=== PATIENT | female | born 1975 | race Caucasian/White ===

== ENCOUNTER → 2016-04-14 | Outpatient (CLI) | payer BC ==
[~2016-04-14] MED LIST: IBUP600T44 PO; OXYC-57 PO
== END | disposition home or self-care (01) ==
LOC: C.PAPS 13:41
PROVIDERS: ATTEND Obstetrics & Gynecology
DX: Z01.419 Encounter for gynecological examination (general) (routine) without abnormal findings (principal)

== ENCOUNTER → 2017-04-18 | Outpatient (CLI) | payer OTHER | END | disposition home or self-care (01) | LOC: C.PAPS 13:28 | PROVIDERS: ATTEND Obstetrics & Gynecology | DX: Z12.4 Encounter for screening for malignant neoplasm of cervix (principal) ==

== ENCOUNTER 2023-06-17 19:29 | Observation (INO) ==
--- OUTSIDE RECORDS SUMMARY | 2023-06-17 19:32 | External Medical Summary | Continuity of Care Document ---
Author Name Unknown Organization [facility] [address] [id number] Care Team Providers Care Cut Press Operator Name Role Phone Mehul Monroy Primary Care Physician [phone] [id number] Date(s): 06/14/23 - 06/14/23 [facility] [address], [place] [id number] Encounter Diagnosis Notalgia paresthetica(Discharge Diagnosis) - 06/14/23 Discharge Disposition: Home or Self Care Attending Physician: BERNADETTE Coburn Holly C Allergies, Adverse Reactions, Alerts No Known Allergies Assessment and Plan Extracted from: Title:Dermatology Office Visit Note Author:BERNADETTE Coburn Holly C Date:06/14/23 1.Notalgia paresthetica Discussed in full the diagnosis, She is going to try primary care provider, her parents went to [facility] and had good treatment. Advised stretching and to pay attention to the position she is in when it itches the most. She has gained weight and not been exercising so she is going to start to get healthy again. she may consider physical therapy,she may consider getting an x-ray to see if there is any arthritis. Advised cool compresses orice packs,discussedthat some skin becomes hypersensitive and that might be why the bra, shirt orsheetmake it itch worse, discussed whenshe is not busy doing anything else that can itch worse. May tryTylenol,she may try ibuprofen 3 pills 3 times a day for 1 week to help with the inflammation in that area,she may try capsaicin cream, explained this will burnthe first time she puts it onand to follow the instructions. Advised not to let thehot shower water hit that area. May consider gabapentin or TENS unitin the future if we cannot get relief. Total time spent includes, [id number] time and charting time, discussing diagnosis, treatment plan and possibilities and prognosis with patient.Total number of minutes for this [id number]. Follow up prn. Advised patient to call with any problems, questions, or concerns. States understanding. Patient was seen independently,Dr Reese for immediate collaboration as needed during this visit.Will follow up as scheduled with Dr Aguilar. Medications No Known Medications Mental Status 06/14/23 Barriers to Learning one year None evide nt Mandatory Health Literacy Documentation Yes Health Literacy Communication Barriers N ever Primary Language Russian Problem List Condition Confirmation Course Effective Dates Status Health St atus Informant Alopecia Confirmed Active Multiple nevi Confirmed Active Milbridge spots Confirmed Active Blue nevus Confirmed Active Milia Confirmed Active Kennedy angioma Confirmed Active Seborrheic keratoses Confirmed Active Diagnosis Diagnosis Type Effective Dates Health Status Clinical Service Informant Notalgia paresthetica Discharge Diagnosis 06/14/23 Procedures Procedure Date Related Diagnosis Body Site Status Procedure 1 05/2012 Completed section 2010 Complete d 1mole removal on back by Dr. Jazmyne Huddleston Social History Social History Type Response Smoking Status Never smoked cigaret daphne Sex Female Dermatology Outpatient Note * BERNADETTE Coburn, Ashlee C: PERFORM, MODIFY Event Display: Dermatology Outpt Note Authored Date: Chief Complaint itching around bra line on back x 5 months. Schmidt in color. History of Present Illness 47 YearsoldFemalepatient here for skin check. Patient reports area of concern today:Spot on leftspinefor 4 to 5 months. [facility] [employer] She knows it was not there the last time she was here to see Dr. Aguilar. There is no rash, but now is turninggray, she believes that is due from the scratching. She has not found anything to relieve the itch, she tried cortisone creamthatis made for bug bites that does not seemto help,CeraVe moisturizer might helpfor 5 minutes or so,it is worse when the clothinghits it and when she has a brawl on. She has had a history of back and neck pain and seen physical therapy in the pastbut does not remem lindsey havinga history of arthritis. No other skin areas of concern. Otherwise healthy. Physical Exam General: Well developed, well nourished, in no acute distress. Oriented x3 with appropriate mood and affect. Skin: skin exam performed of hair, scalp, ears, face, nose, lips, neck, chest, abdomen, back, axilla, upper extremities, hands. The exam normal except for the following findings: left mid back with blotchy oneill area. Nolesions suspicious for skin cancer. No unusual features under dermoscopy. Patient declined further exam. Denied any other areas of concerns. Assessment/Plan 1.Notalgia paresthetica Discussed in full the diagnosis, She is going to try primary care provider, her [facility] went to [facility] and had good treatment. Advised stretching and to pay attention to the position she is in when it itches the most. She has gained weight and not been exercising so she is going to start to get healthy again. she may consider physical therapy,she may consider getting an x-ray to see if there is any arthritis. Advised cool compresses orice packs,discussedthat some skin becomes hypersensitive and that might be why the bra, shirt orsheetmake it itch worse, discussed whenshe is not busy doing anything else that can itch worse. May tryTylenol,she may try ibuprofen 3 pills 3 times a day for 1 week to help with the inflammation in that area,she may try capsaicin cream, explained this will burnthe first time she puts it onand to follow the instructions. Advised not to let thehot shower water hit that area. May consider gabapentin or TENS unitin the future if we cannotget relief. Total time spent includes, [id number] time and charting time, discussing diagnosis, treatment plan and possibilities and prognosis with patient.Total number of minutes for this [id number]. Follow up prn. Advised patient to call with any problems, questions, or concerns. States understanding. Patient was seenindependently,Dr Reese for immediate collaboration as needed during this visit.Will follow up as scheduled with Dr Aguilar. Problem List/Past Medical History Ongoing Alopecia Blue nevus Kennedy angioma Milbridge spots Milia Multiple nevi Seborrheic keratoses Historical Skin tag Procedure/Surgical History Procedure| Service Date: 05/2012Cesarean section| Service Date: 2010 Allergies NKA Social History Smoking Status Never smoked cigarettes Electronic Signature on File Electronically Reviewed/Signed by: Ashlee Coburn PA-C Author Signature Dt/Tm:06/14/2023 04:12 PM Department of Dermatology Electronically Reviewed/Signed by: Delia Aguilar MD Cosigner Signature Dt/Tm: 06/14/2023 04:21 PM Department of Dermatology [facility] Patient Care team information Care Team Personnel Name: DO Monroy Dominic Position: Referring DIRECT Member Role: Primary Care Provider Address: Address: [address] [place] [address] Care Team Related Persons Name: TOMASZ MORRIS Address: home [address] [place], [place] [id number] Name: TOMASZ MORRIS Address: [facility] Address: home [address] [place], [place] [id number]"
--- NOTE | 2023-06-17 19:43 | Emergency Department Note ---
Impression & Plan Chest pain, Paresthesia of left arm, Hypertensive urgency, Elevated troponin ED Provider Note NAME: JONNIE MORRIS AGE: 47 SEX: F : 1975 ARRIVES VIA: Walk-In INFORMANT: Patient ED PROVIDER(S): Michael Nicole MD CHIEF COMPLAINT: Chest pain, Left arm numbness PLAN: Disposition: Admit MEDICAL DECISION MAKING: The patient is a pleasant 47-year-old woman with a past medical history of migraines who presents emergency department via walk-in accompanied by her son for evaluation of acute onset anterior chest pain/burning with development of left arm numbness which occurred several hours ago prior to arrival when the patient reports she was driving her car after stopping to get Cold [place] ice cream with her family. She reports she did not have any ice cream. She reports she had not eaten anything since the morning. She understands that acid reflux can cause a burning in your chest but she has never had this before. She otherwise reports feeling healthy denies fevers, chills, cough, congestion, GI/ symptoms. She reports the chest pain/burning has dissipated but she still feels numbness and tingling in her left upper extremity. On evaluation the patient is uncomfortable in no distress, afebrile blood pressure initially 170s/120s and heart in the 120s upon presenting to triage and vital signs otherwise stable. She appears clinically dry. Pulses are equal. Limited bedside cardiac ultrasound did not demonstrate overt pericardial effusion. EKG without overt acute ischemia. CXR negative for acute cardiopulmonary process per my personal preliminary review/interpretation. WBC 13 K, nonspecific. H/H and platelets within normal limits. Chemistry without metabolic acidosis. Electrolytes LFTs are unremarkable. Initial high- sensitivity troponin 8, within normal limits with delta 2-hour High C troponin elevated at 40, still nonspecific but suspect may have been related to hypertensive urgency given the patient's blood pressure was substantially elevated on arrival. We did recommend admission for further monitoring and assessment though the patient initially reported that she preferred to go home for her children 1 who is 21 and the other who is 12. She reports her is out of town. However, upon further discussion the patient was in agreement to stay for further assessment as her 21-year-old will be able to look after her youngest child. Patient reported resolution of symptoms following IV hydration and Toradol. Numbness of her left upper extremity was also resolved. The patient's subsequent activity troponin was additionally elevated at 79, nonspecific and the patient is no longer having any chest pain. Patient was given full dose aspirin. Case was discussed with [facility] who will evaluate the patient for admission. Further management per admitting team. Triage Nursing notes reviewed and agree them. Prior/external medical records reviewed Vital Signs: reviewed Differential diagnosis: Cardiac ischemia, aortic dissection, pulmonary embolism, pneumothorax, pneumonia, pericarditis, myocarditis, esophageal rupture, GERD, cholecystitis, pancreatitis, musculoskeletal, as well as other pathologies. ER treatment provided: See below. Diagnostics interpreted by me: ECG: Sinus tachycardia, 106 bpm, no ectopy, no overt ST elevation or depression, QTc 459, QRS 84. Cardiac Monitoring: An order for continuous cardiac monitoring was placed and demonstrated sinus tachycardia, 106 bpm, no ectopy. Laboratory studies: See below Imaging studies: See below Consultation(s): Case was discussed [facility] who will evaluate the patient for admission. HPI: The patient is a pleasant 47-year-old woman with a past medical history of migraines who presents emergency department via walk-in accompanied by her son for evaluation of acute onset anterior chest pain/burning with development of left arm numbness which occurred several hours ago prior to arrival when the patient reports she was driving her car after stopping to get [place] ice cream with her family. She reports she did not have any ice cream. She reports she had not eaten anything since the morning. She understands that acid reflux can cause a burning in your chest but she has never had this before. She otherwise reports feeling healthy denies fevers, chills, cough, congestion, GI/ symptoms. She reports the chest pain/burning has dissipated but she still feels numbness and tingling in her left upper extremity. ROS: See above HPI for pertinent positives & negatives. A total of 10 systems reviewed and were otherwise negative. VITALS:See Below PHYSICAL EXAMINATION: GENERAL: Awake, alert, anxious-appearing, in no distress HENT: Normocephalic, atraumatic. Oropharynx with dry mucous membranes and otherwise unremarkable. EYES: Normal conjunctiva. Sclera non-icteric. NECK: Supple. No nuchal rigidity. FROM. No JVD. RESPIRATORY: Clear to auscultation. CARDIAC: Tachycardic rate, normal rhythm. Extremities warm and well perfused. Pulses equal. ABDOMEN: Soft, non-distended. No tenderness to palpation. No rebound or guarding. No masses. RECTAL: Deferred. MUSCULOSKELETAL: Chest examination reveals no tenderness. The back is symmetrical on inspection without obvious abnormality. There is no CVA tenderness to palpation. No joint edema. LOWER EXTREMITIES: Calves are equal size bilaterally and non-tender. No edema. No discoloration. NEURO: Normal sensorium. No sensory or motor deficits noted. 5/5 strength and SILT x 4 extremities. SKIN: No rash or jaundice noted. Michael Nicole MD Past Med/Surg History Medical History Migraine headache History of oligohydramnios Cervical polyp Surgical History S/P section Family History Grandmother (Paternal) Alzheimer disease Grandfather No problems noted. Grandfather (Maternal) Cancer Diabetes Grandmother (Maternal) Diabetes Mother Hypertension Grandfather (Paternal) Heart disease Father Heart disease Denies family history of Ovarian cancer Breast cancer Colorectal cancer Social History Smoking Status: Never smoker Do You Dip or Chew Tobacco: No; Hx Substance Use: No Preferred Language: French marital status: Feels Safe at Home: Yes Allergies Allergies Allergy/AdvReac Type Severity Reaction Status Date / Time nitrofurantoin Allergy Mild Shortness Verified 06/17/23 19:48 [From Macrobid] of Breath Home Meds Home Medications Medication Instructions Recorded Confirmed ibuprofen 200 mg tablet 200 mg PO Q8H PRN Fever Or Pain 01/11/19 06/17/23 Results & Data (ED) Vital Signs Vital Signs - 24 hr 06/17/23 19:31 06/17/23 19:42 06/17/23 19:45 Temperature 36.6 C Temperature Source Temporal Artery Scan Pulse Rate 120 H 102 H Pulse Rate [Apical] Pulse Rhythm Regular Pulse Strength Normal Respiratory Rate 20 Respiratory Effort / Characteristics Non-Labored Spontaneous Respiratory Depth Normal Respiratory Pattern Regular Blood Pressure 176/124 H Blood Pressure [Right Arm] Blood Pressure Mean 141 Blood Pressure Mean [Right Arm] Blood Pressure Position Sitting Pulse Oximetry 99 Oxygen Delivery Method Room Air Room Air Sepsis Recent Fever Within 48 Hours No Sepsis New/Unexplained Change in Mental Status N/A Sepsis Action Taken by Nursing No Action Required 06/17/23 19:45 06/17/23 19:55 06/17/23 20:12 Temperature Temperature Source Pulse Rate Pulse Rate [Apical] 95 H 97 H Pulse Rhythm Pulse Strength Respiratory Rate 18 18 Respiratory Effort / Characteristics Non-Labored Respiratory Depth Respiratory Pattern Blood Pressure Blood Pressure [Right Arm] 185/113 H 159/95 H Blood Pressure Mean Blood Pressure Mean [Right Arm] 137 116 Blood Pressure Position Pulse Oximetry 100 100 99 Oxygen Delivery Method Room Air Room Air Sepsis Recent Fever Within 48 Hours Sepsis New/Unexplained Change in Mental Status Sepsis Action Taken by Nursing 06/17/23 21:37 06/17/23 23:00 06/17/23 23:45 Temperature Temperature Source Pulse Rate 79 Pulse Rate [Apical] 80 79 Pulse Rhythm Pulse Strength Respiratory Rate 18 20 Respiratory Effort / Characteristics Respiratory Depth Respiratory Pattern Blood Pressure Blood Pressure [Right Arm] 122/87 122/76 Blood Pressure Mean Blood Pressure Mean [Right Arm] 98 91 Blood Pressure Position Pulse Oximetry 98 99 Oxygen Delivery Method Sepsis Recent Fever Within 48 Hours Sepsis New/Unexplained Change in Mental Status Sepsis Action Taken by Nursing 06/18/23 01:00 Temperature Temperature Source Pulse Rate Pulse Rate [Apical] 74 Pulse Rhythm Pulse Strength Respiratory Rate 18 Respiratory Effort / Characteristics Respiratory Depth Respiratory Pattern Blood Pressure Blood Pressure [Right Arm] 111/74 Blood Pressure Mean Blood Pressure Mean [Right Arm] 86 Blood Pressure Position Pulse Oximetry 99 Oxygen Delivery Method Room Air Sepsis Recent Fever Within 48 Hours Sepsis New/Unexplained Change in Mental Status Sepsis Action Taken by Nursing Laboratory Data Attestation: I reviewed the patient's lab results. 06/17/23 19:50 06/17/23 19:50 Lab Results 06/17/23 06/17/23 06/18/23 Range/Units 19:50 22:13 00:12 WBC 13.08 H (4.8-10.8) K/ul RBC 4.86 (4.20-5.40) M/uL Hgb 14.4 (12.0-16.0) g/dl Hct 44.1 (37.0-47.0) % MCV 90.7 (80.0-100.0) fL MCH 29.6 (25.0-34.0) pg MCHC 32.7 (32.0-36.0) g/dL RDW Std Deviation 39.5 (36.4-46.3) fL RDW Coeff of Aashish 11.9 (11.5-14.5) % Plt Count 298 (130-400) K/uL MPV 10.5 (9.4-12.4) fL Immature Gran % (Auto) 0.2 % Neut % (Auto) 56.4 % Lymph % (Auto) 35.4 % Riley % (Auto) 6.8 % Eos % (Auto) 0.8 % Baso % (Auto) 0.4 % Neut # (Auto) 7.37 H (1.40-6.50) K/uL Lymph # (Auto) 4.63 H (1.20-3.40) K/uL Riley # (Auto) 0.89 H (0.11-0.59) K/uL Eos # (Auto) 0.11 (0.00-0.50) K/uL Baso # (Auto) 0.05 (0.00-0.20) K/uL Immature Gran # (Auto) 0.03 (0.01-0.20) K/uL Sodium 139 (136-145) mmol/L Potassium 3.5 (3.5-5.1) mmol/L Chloride 104 (98-107) mmol/L Carbon Dioxide 26 (21-32) mmol/L Anion Gap 9 (3-11) BUN 14 (6-23) mg/dl Creatinine 0.95 (0.6-1.2) mg/dl Est Cr Clr Drug Dosing 62.5 ml/min Est GFR ( Amer) 82.1 ml/min Est GFR (Non-Af Amer) 70.8 ml/min BUN/Creatinine Ratio 14.7 (10-20) Glucose 106 H (70-99(Fasting)) mg/dl Calcium 9.8 (8.6-10.3) mg/dl Phosphorus 3.2 (2.5-4.9) mg/dl Magnesium 2.0 (1.7-2.4) mg/dl Total Bilirubin 0.4 (0.2-1.0) mg/dl AST 18 (13-39) U/L ALT 14 (7-52) U/L Alkaline Phosphatase 43 (34-104) U/L Troponin I High Sens 8.5 44.3 H D 79.2 H* D (0-14) pg/ml Total Protein 7.7 (6.0-8.3) gm/dl Albumin 4.7 (3.4-5.0) gm/dl Globulin 3.0 (2.5-4.0) gm/dl Albumin/Globulin Ratio 1.6 (0.9-2) Lipase 22 (11-82) U/L Procalcitonin < 0.02 (0-0.5) ng/ml HCG, Qual Negative (Negative) Administered Medications Discontinued Medications Aspirin (Aspirin Chew 324 Mg) 324 mg PO NOW STA Stop: 06/18/23 00:01 Last Admin: 06/18/23 00:04 Dose: 324 mg Documented By: SHAMAR Sodium Chloride (Nss) 1,000 mls @ 999 mls/hr IV .Q1H1M ONE Stop: 06/17/23 20:42 Last Infusion: 06/17/23 20:50 Dose: Infused Documented By: Admin: 06/17/23 19:48 Dose: 999 mls/hr Documented By: SHAMAR Ioversol (Optiray 350 500ml) 114 ml IV ONCE ONE Stop: 06/17/23 20:29 Last Admin: 06/17/23 20:28 Dose: 114 ml Documented By: MARIE Ketorolac Tromethamine (Ketorolac Tromethamine 15 Mg/Ml Vial) 15 mg IV NOW STA Stop: 06/17/23 22:05 Last Admin: 06/17/23 22:11 Dose: 15 mg Documented By: SHAMAR Imaging Data Radiologist's Impression: Chest CTA 06/17/23 20:12 Exam(s): CTA CHEST W/WO Contrast IV Amt: 114ml opti 320 EXAM: CT Angiography Chest Without and With Intravenous Contrast CLINICAL HISTORY: Reason for exam: acute CP, HTN, LUE numbness. TECHNIQUE: Axial computed tomographic angiography images of the chest without and with intravenous contrast. CTDI is 47.98 mGy and DLP is 1069.32 mGy-cm. Automated exposure control was utilized for the study. A dose lowering technique was utilized adhering to the principles of ALARA. MIP reconstructed images were created and reviewed. CONTRAST: Patient received 114ml opti 320 of IV contrast COMPARISON: None. FINDINGS: Pulmonary arteries: Unremarkable. No pulmonary embolism. Aorta: No acute findings. No thoracic aortic aneurysm. Lungs: Unremarkable. No mass. No consolidation. Pleural space: Unremarkable. No significant effusion. No pneumothorax. Heart: Unremarkable. No cardiomegaly. No significant pericardial effusion. No evidence of RV dysfunction. Bones/joints: No acute fracture. No dislocation. Soft tissues: Unremarkable. Lymph nodes: Unremarkable. No enlarged lymph nodes. Other findings: Multilevel degenerative disease of the spine. IMPRESSION: 1. Normal CTA of the chest with no pulmonary embolus or aortic dissection. 2. No acute cardiopulmonary disease. Electronically signed by: Maricruz Baeza MD 06/17/23 21:49 PM Discharge Plan Visit Data Chief Complaint: Chest Pain Stated Complaint: CHEST PAIN ED Provider: Michael Nicole Discharge Problem: Chest pain, Paresthesia of left arm, Hypertensive urgency, Elevated troponin Discharge Instructions Krames/Other Patient Handouts: DASH Plan Eat Heart Healthy Food, ED Hypertension, To Be Confirmed Activity Restrictions/Additional Instructions: Exam(s): CTA CHEST W/WO Contrast IV Amt: 114ml opti 320 EXAM: CT Angiography Chest Without and With Intravenous Contrast CLINICAL HISTORY: Reason for exam: acute CP, HTN, LUE numbness. TECHNIQUE: Axial computed tomographic angiography images of the chest without and with intravenous contrast. CTDI is 47.98 mGy and DLP is 1069.32 mGy-cm. Automated exposure control was utilized for the study. A dose lowering technique was utilized adhering to the principles of ALARA. MIP reconstructed images were created and reviewed. CONTRAST: Patient received 114ml opti 320 of IV contrast COMPARISON: None. FINDINGS: Pulmonary arteries: Unremarkable. No pulmonary embolism. Aorta: No acute findings. No thoracic aortic aneurysm. Lungs: Unremarkable. No mass. No consolidation. Pleural space: Unremarkable. No significant effusion. No pneumothorax. Heart: Unremarkable. No cardiomegaly. No significant pericardial effusion. No evidence of RV dysfunction. Bones/joints: No acute fracture. No dislocation. Soft tissues: Unremarkable. Lymph nodes: Unremarkable. No enlarged lymph nodes. Other findings: Multilevel degenerative disease of the spine. IMPRESSION: 1. Normal CTA of the chest with no pulmonary embolus or aortic dissection. 2. No acute cardiopulmonary disease. Forms Stand Alone Forms: Opiat[employer] Prescriptions Prescriptions: No Action ibuprofen 200 mg Tablet 200 mg PO Q8H PRN (Reason: Fever Or Pain) Referrals Referrals: Mehul Monroy DO [Outside Practitioners] - Discharge Problem: Chest pain Qualifiers: Chest pain type: unspecified Qualified Code(s): R07.9 - Chest pain, unspecified
[2023-06-17] MEDS: SODIUM CHLORIDE 0.9% 1,000 ML IV ONE (19:48)
[2023-06-17 20:05] LABS: Basophils # (auto) 0.05 K/uL (0.00-0.20); Basophils % (auto) 0.4 %; Eosinophils # (auto) 0.11 K/uL (0.00-0.50); Eosinophils % (auto) 0.8 %; Hematocrit (blood only) 44.1 % (37.0-47.0); Hemoglobin 14.4 g/dl (12.0-16.0); Immature Granulocytes # (auto) 0.03 K/uL (0.01-0.20); Immature Granulocytes % (auto) 0.2 %; Lymphocytes # (auto) 4.63 K/uL (1.20-3.40); Lymphocytes % (auto) 35.4 %; Mean Corpuscular Hemoglobin 29.6 pg (25.0-34.0); Mean Corpuscular Hgb Conc 32.7 g/dL (32.0-36.0); Mean Corpuscular Volume 90.7 fL (80.0-100.0); Mean Platelet Volume 10.5 fL (9.4-12.4); Monocytes # (auto) 0.89 K/uL (0.11-0.59); Monocytes % (auto) 6.8 %; Neutrophils # (auto) 7.37 K/uL (1.40-6.50); Neutrophils % (auto) 56.4 %; Platelet Count 298 K/uL (130-400); RDW Coefficient of Variation 11.9 % (11.5-14.5); RDW Standard Deviation 39.5 fL (36.4-46.3); Red Blood Count 4.86 M/uL (4.20-5.40); White Blood Count 13.08 K/ul (4.8-10.8)
[2023-06-17 20:27] LABS: Albumin Globulin Ratio 1.6 (0.9-2); Albumin Level 4.7 gm/dl (3.4-5.0); BUN Creatinine Ratio 14.7 (10-20); Bilirubin,Total 0.4 mg/dl (0.2-1.0); Calcium 9.8 mg/dl (8.6-10.3); Creatinine Clr Calc Pharmacy 62.5 ml/min; Est GFR (African American) 82.1 ml/min; Est GFR (Non-African American) 70.8 ml/min; Phosphorus 3.2 mg/dl (2.5-4.9); Potassium 3.5 mmol/L (3.5-5.1); Total Protein 7.7 gm/dl (6.0-8.3)
[2023-06-17] MEDS: OPTIRAY 350 500ml IV ONE (20:28)
[2023-06-17 20:32] LABS: Troponin I High Sensitivity 8.5 pg/ml (0-14)
[2023-06-17 20:33] LABS: Pregnancy Test, Serum Negative (Negative)
--- NOTE | 2023-06-17 21:50 | CT Scan Report ---
Exam(s): CTA CHEST W/WO Contrast IV Amt: 114ml opti 320 EXAM: CT Angiography Chest Without and With Intravenous Contrast CLINICAL HISTORY: Reason for exam: acute CP, HTN, LUE numbness. TECHNIQUE: Axial computed tomographic angiography images of the chest without and with intravenous contrast. CTDI is 47.98 mGy and DLP is 1069.32 mGy-cm. Automated exposure control was utilized for the study. A dose lowering technique was utilized adhering to the principles of ALARA. MIP reconstructed images were created and reviewed. CONTRAST: Patient received 114ml opti 320 of IV contrast COMPARISON: None. FINDINGS: Pulmonary arteries: Unremarkable. No pulmonary embolism. Aorta: No acute findings. No thoracic aortic aneurysm. Lungs: Unremarkable. No mass. No consolidation. Pleural space: Unremarkable. No significant effusion. No pneumothorax. Heart: Unremarkable. No cardiomegaly. No significant pericardial effusion. No evidence of RV dysfunction. Bones/joints: No acute fracture. No dislocation. Soft tissues: Unremarkable. Lymph nodes: Unremarkable. No enlarged lymph nodes. Other findings: Multilevel degenerative disease of the spine. IMPRESSION: 1. Normal CTA of the chest with no pulmonary embolus or aortic dissection. 2. No acute cardiopulmonary disease. Electronically signed by: Maricruz Baeza MD 06/17/23 21:49 PM
[2023-06-17] MEDS: KETOROLAC TROMETHAMINE 15 MG/ML VIAL IV STA (22:11)
[2023-06-18] MEDS: ASPIRIN CHEW 324 MG PO STA (00:04)
--- NOTE | 2023-06-18 01:57 | History & Physical Report ---
Date of Service June 18, 2023 Assessment & Plan (1) Chest pain: Plan: With troponin elevation Possibly from hypertension, possible chronic BP elevation given LAE on EKG Rule out ACS Patient currently normotensive. Hyperlipidemia, not on statin Rx Hyperglycemia, likely prediabetes hemoglobin A1c of 5.7 from 2021 OBS PCU Follow blood pressure Initiate lisinopril if with persistent BP elevation Follow troponin Aspirin for CAD prevention until ACS ruled out TTE, Cardiology consult Re: Chest pain with troponin elevation Update lipid profile and hemoglobin A1c DVT prophylaxis. Lovenox subcu Full code Text document was generated using [employer] voice recognition software. It may contain grammatical or spelling errors. Kindly contact undersigned for clarification of any documentation item in question. History of Present Illness Chief Complaint: Chest burning Primary Care Provider: Sweta Tiwari MD History obtained from patient and records. Medical history significant for hyperlipidemia. Patient was driving yesterday when she experienced nonpruritic chest discomfort going to her neck described as burning with some left upper extremity radiation and shortness of breath. No cough symptoms. No abdominal pain. No unusual headache. Admits to bad food choices the last month. Patient consuming salty chips earlier. No prior episodes. Patient brought to ER for evaluation by family. SBP 180s upon arrival at the ER. Patient currently comfortable after aspirin and Toradol administration at the ER. Medical History as above Surgical History : section Family History : Heart disease, DM, lung cancer Personal/Social history : Non-smoker, no EtOH intake, homemaker Allergies Allergy/AdvReac Type Severity Reaction Status Date / Time nitrofurantoin Allergy Mild Shortness Verified 06/17/23 19:48 [From Macrobid] of Breath Home Medications Medication Instructions Recorded Confirmed Type ibuprofen 200 mg tablet 200 mg PO Q8H PRN Fever Or Pain 01/11/19 06/17/23 History Past Med/Surg History Medical History (Updated 06/18/23 @ 02:08 by Michael Nicole MD) Migraine headache History of oligohydramnios Cervical polyp Surgical History (Updated 06/18/23 @ 05:47 by Kisha Cam RN) History of section S/P section Family History Grandmother (Paternal) Alzheimer disease Grandfather No problems noted. Grandfather (Maternal) Cancer Diabetes Grandmother (Maternal) Diabetes Mother Hypertension Grandfather (Paternal) Heart disease Father Heart disease Denies family history of Ovarian cancer Breast cancer Colorectal cancer Social History Smoking Status: Never smoker Second Hand Exposure: No; Do You Dip or Chew Tobacco: No; Tobacco Cessation Education Requested by Patient: No Hx Alcohol Use: No Hx Substance Use: No Preferred Language: Swedish Communication Ability: Effective Breaker Off Required: No Beliefs That Will Affect Care: None marital status: Current Living Situation: Spouse and Family Other Information That Helps Us Care for You: No Feels Safe at Home: Yes Safety Concerns: Feels Safe At This Time Assistive Devices: None Review of Systems Review of Systems: As per HPI, all other systems reviewed and negative Physical Exam Physical Exam: GENERAL: Comfortable, pleasant, slightly anxious, no respiratory distress SKIN: Normal color, warm HEENT: [place] palpebral conjunctivae, no ptosis, moist buccal mucosa NECK : Supple, no tenderness CHEST : CTA, no tenderness HEART : RRR, no obvious murmurs ABDOMEN: Some distention, nontender EXTREMITIES : No LE swelling/tenderness, no other conspicuous deformities noted NEUROLOGIC : Coherent, no facial asymmetry, no other gross focality Results & Data Results & Data Vital Signs (Past 12 Hours) Vital Signs Temp Pulse Pulse Resp BP BP Pulse Ox 06/18/23 01:00 74 18 111/74 99 06/17/23 23:45 79 06/17/23 23:00 79 20 122/76 99 06/17/23 21:37 80 18 122/87 98 06/17/23 20:12 97 H 18 159/95 H 99 06/17/23 19:55 100 06/17/23 19:45 95 H 18 185/113 H 100 06/17/23 19:45 06/17/23 19:42 102 H 06/17/23 19:31 36.6 C 120 H 20 176/124 H 99 O2 Del Method 06/18/23 01:00 Room Air 06/17/23 23:45 06/17/23 23:00 06/17/23 21:37 06/17/23 20:12 06/17/23 19:55 Room Air 06/17/23 19:45 Room Air 06/17/23 19:45 Room Air 06/17/23 19:42 03/23/24 19:31 Room Air Laboratory Results Laboratory Results WBC 13.08 K/ul (4.8-10.8) H 06/17/23 19:50 RBC 4.86 M/uL (4.20-5.40) 06/17/23 19:50 Hgb 14.4 g/dl (12.0-16.0) 06/17/23 19:50 Hct 44.1 % (37.0-47.0) 06/17/23 19:50 MCV 90.7 fL (80.0-100.0) 06/17/23 19:50 MCH 29.6 pg (25.0-34.0) 06/17/23 19:50 MCHC 32.7 g/dL (32.0-36.0) 06/17/23 19:50 RDW Std Deviation 39.5 fL (36.4-46.3) 06/17/23 19:50 RDW Coeff of Aashish 11.9 % (11.5-14.5) 06/17/23 19:50 Plt Count 298 K/uL (130-400) 06/17/23 19:50 MPV 10.5 fL (9.4-12.4) 06/17/23 19:50 Immature Gran % (Auto) 0.2 % 06/17/23 19:50 Neut % (Auto) 56.4 % 06/17/23 19:50 Lymph % (Auto) 35.4 % 06/17/23 19:50 [place] % (Auto) 6.8 % 06/17/23 19:50 Eos % (Auto) 0.8 % 06/17/23 19:50 Baso % (Auto) 0.4 % 06/17/23 19:50 Neut # (Auto) 7.37 K/uL (1.40-6.50) H 06/17/23 19:50 Lymph # (Auto) 4.63 K/uL (1.20-3.40) H 06/17/23 19:50 [place] # (Auto) 0.89 K/uL (0.11-0.59) H 06/17/23 19:50 Eos # (Auto) 0.11 K/uL (0.00-0.50) 06/17/23 19:50 Baso # (Auto) 0.05 K/uL (0.00-0.20) 06/17/23 19:50 Immature Gran # (Auto) 0.03 K/uL (0.01-0.20) 06/17/23 19:50 Sodium 139 mmol/L (136-145) 06/17/23 19:50 Potassium 3.5 mmol/L (3.5-5.1) 06/17/23 19:50 Chloride 104 mmol/L (98-107) 06/17/23 19:50 Carbon Dioxide 26 mmol/L (21-32) 06/17/23 19:50 Anion Gap 9 (3-11) 06/17/23 19:50 BUN 14 mg/dl (6-23) 06/17/23 19:50 Creatinine 0.95 mg/dl (0.6-1.2) 06/17/23 19:50 Est Cr Clr Drug Dosing 62.5 ml/min 06/17/23 19:50 Est GFR ( Amer) 82.1 ml/min 06/17/23 19:50 Est GFR (Non-Af Amer) 70.8 ml/min 06/17/23 19:50 BUN/Creatinine Ratio 14.7 (10-20) 06/17/23 19:50 Glucose 106 mg/dl (70-99(Fasting)) H 06/17/23 19:50 Calcium 9.8 mg/dl (8.6-10.3) 06/17/23 19:50 Phosphorus 3.2 mg/dl (2.5-4.9) 06/17/23 19:50 Magnesium 2.0 mg/dl (1.7-2.4) 06/17/23 19:50 Total Bilirubin 0.4 mg/dl (0.2-1.0) 06/17/23 19:50 AST 18 U/L (13-39) 06/17/23 19:50 ALT 14 U/L (7-52) 06/17/23 19:50 Alkaline Phosphatase 43 U/L (34-104) 06/17/23 19:50 Troponin I High Sens 79.2 pg/ml (0-14) H* D 06/18/23 00:12 Total Protein 7.7 gm/dl (6.0-8.3) 03/23/24 19:50 Albumin 4.7 gm/dl (3.4-5.0) 06/17/23 19:50 Globulin 3.0 gm/dl (2.5-4.0) 06/17/23 19:50 Albumin/Globulin Ratio 1.6 (0.9-2) 06/17/23 19:50 Lipase 22 U/L (11-82) 06/17/23 19:50 Procalcitonin < 0.02 ng/ml (0-0.5) 06/17/23 19:50 HCG, Qual Negative (Negative) 06/17/23 19:50 Impressions Chest CTA 06/17/23 20:12 Exam(s): CTA CHEST W/WO Contrast IV Amt: 114ml opti 320 EXAM: CT Angiography Chest Without and With Intravenous Contrast CLINICAL HISTORY: Reason for exam: acute CP, HTN, LUE numbness. TECHNIQUE: Axial computed tomographic angiography images of the chest without and with intravenous contrast. CTDI is 47.98 mGy and DLP is 1069.32 mGy-cm. Automated exposure control was utilized for the study. A dose lowering technique was utilized adhering to the principles of ALARA. MIP reconstructed images were created and reviewed. CONTRAST: Patient received 114ml opti 320 of IV contrast COMPARISON: None. FINDINGS: Pulmonary arteries: Unremarkable. No pulmonary embolism. Aorta: No acute findings. No thoracic aortic aneurysm. Lungs: Unremarkable. No mass. No consolidation. Pleural space: Unremarkable. No significant effusion. No pneumothorax. Heart: Unremarkable. No cardiomegaly. No significant pericardial effusion. No evidence of RV dysfunction. Bones/joints: No acute fracture. No dislocation. Soft tissues: Unremarkable. Lymph nodes: Unremarkable. No enlarged lymph nodes. Other findings: Multilevel degenerative disease of the spine. IMPRESSION: 1. Normal CTA of the chest with no pulmonary embolus or aortic dissection. 2. No acute cardiopulmonary disease. Electronically signed by: Maricruz Baeza MD 06/17/23 21:49 PM Diagnostic Findings EKG as per my interpretation : Rate 105, sinus tachycardia, normal axis, LAE, T wave abnormalities septal leads (1) Chest pain Chest pain type: unspecified Qualified Code(s): R07.9 - Chest pain, unspecified
[2023-06-18] MEDS ORDERED: PROMETHAZINE HCL 6.25 MG in SODIUM CHLORIDE 0.9% 50 ML IV PRN (02:01)
[2023-06-18] MEDS ORDERED: MoRPHine SULFATE 2 MG/ML CARP IV PRN (02:01)
[2023-06-18] MEDS ORDERED: traMADol HCL 50 MG TABLET PO PRN (02:01)
[2023-06-18] MEDS ORDERED: LORazepam 0.5 MG TAB PO PRN (02:01)
[2023-06-18] MEDS: NSS + 20MEQ KCL 20 MEQ/1,000 ML BAG IV ONE (02:15)
[2023-06-18 05:39] LABS: Basophils # (auto) 0.04 K/uL (0.00-0.20); Basophils % (auto) 0.4 %; Eosinophils # (auto) 0.11 K/uL (0.00-0.50); Eosinophils % (auto) 1.1 %; Hematocrit (blood only) 40.6 % (37.0-47.0); Hemoglobin 13.6 g/dl (12.0-16.0); Immature Granulocytes # (auto) 0.02 K/uL (0.01-0.20); Immature Granulocytes % (auto) 0.2 %; Lymphocytes # (auto) 3.44 K/uL (1.20-3.40); Lymphocytes % (auto) 35.8 %; Mean Corpuscular Hemoglobin 30.2 pg (25.0-34.0); Mean Corpuscular Hgb Conc 33.5 g/dL (32.0-36.0); Mean Corpuscular Volume 90.2 fL (80.0-100.0); Mean Platelet Volume 10.4 fL (9.4-12.4); Monocytes # (auto) 0.71 K/uL (0.11-0.59); Monocytes % (auto) 7.4 %; Neutrophils # (auto) 5.29 K/uL (1.40-6.50); Neutrophils % (auto) 55.1 %; Platelet Count 291 K/uL (130-400); RDW Standard Deviation 39.5 fL (36.4-46.3); White Blood Count 9.61 K/ul (4.8-10.8)
[2023-06-18 05:55] LABS: Chol HDL Ratio 6.4 (0-5); Creatinine Clr Calc Pharmacy 74.5 ml/min; Est GFR (Non-African American) 77.7 ml/min; Potassium 3.8 mmol/L (3.5-5.1)
[2023-06-18 06:03] LABS: Troponin I High Sensitivity 92.1 pg/ml (0-14)
[2023-06-18 06:20] LABS: Partial Thromboplastin Time 28 Seconds (21-31)
[2023-06-18] MEDS: lisinopril 2.5 MG TAB PO SCH (06:30)
[2023-06-18 07:18] LABS: Estimated Average Glucose 123 mg/dl; Hemoglobin A1C 5.9 % (4.5-5.6)
--- NOTE | 2023-06-18 08:15 | XRay Report ---
XR chest 1V portable CLINICAL HISTORY: Chest pain, nonspecific TECHNIQUE: Single frontal radiograph of the chest was obtained. Comparison: Comparison is made to chest radiograph 01/18/2019 FINDINGS: No lines and tubes are seen. The cardiomediastinal silhouette is normal. The lungs are clear. No evid ence of pleural effusion or pneumothorax. IMPRESSION: No acute chest disease. ACT 112: Negative or not required by law. Electronically signed by: Lennox Guerrero M.D. 06/18/2023 8:14 AM
--- NOTE | 2023-06-18 08:47 | Electrocardiogram Report ---
Test Reason : Blood Pressure : / mmHG Vent. Rate : 106 BPM Atrial Rate : 106 BPM P-R Int : 194 ms QRS Dur : 084 ms QT Int : 346 ms P-R-T Axes : 066 077 063 degrees QTc Int : 459 ms Sinus tachycardia Left atrial enlargement Borderline ECG No previous ECGs available Confirmed by Naren Quintana ([id number]) on 06/18/2023 8:47:31 AM Referred By: REFERRED SELF Confirmed By:Naren Quintana
[2023-06-18] MEDS: NITROGLYCERIN SL 0.4 MG/TAB TAB SL PRN (08:51)
[2023-06-18] MEDS: ATORVASTATIN 40 MG TAB PO SCH (09:05)
--- NOTE | 2023-06-18 10:52 | Cardiology Consultation ---
Date of Consultation June 18, 2023 Assessment & Plan (1) Elevated troponin: (2) Hypertensive urgency: (3) Paresthesia of left arm: (4) Chest pain: Plan Chest pain, undefined Elevated troponin EKG without acute ST segment change Hypertensive urgency Marked dyslipidemia Family history of ischemic heart disease Prediabetes Anxiety 47-year-old female with multiple underlying risk factors admitted after an episode of chest pain as detailed below. Blood pressure significantly elevated on presentation, consistent with hypertensive urgency. Patient anxious, which may certainly be a contributing factor. Options of management discussed with patient. Recommendations: 1. Refer for resting echocardiography 2. Add beta-zbigniew, metoprolol tartrate 25 mg twice per day 3. Daily aspirin 4. High intensity statin therapy, atorvastatin 80 mg/day 5. Add low-dose TREVOR inhibition, lisinopril 2.5 mg/to 6. IV heparin, weight-based protocol 7. NPO after midnight for diagnostic cardiac catheterization I spent a total of 95 minutes on the date of service in preparation, delivery, and documentation of the care provided to this patient excluding any time spent in the performance of separately billed services. This visit was a split-shared visit with the substantive portion of the medical decision making performed by the supervising national sales representative/billing provider. Supervising Physician Co-Signing Physician Notes I have reviewed the advanced practitioner's documentation on the date of service referenced in note, and I agree with, and take responsibility for the plan of care. 47-year-old female with known history of hypertension prediabetes anxiety dyslipidemia not on statins presents with chest pain noted to have elevated blood pressure and elevated troponins No acute ischemic changes on EKG Echocardiogram normal EF no regional wall motion abnormalities Elevated troponins have peaked at 92 started to downtrend does have significant risk factors will need to rule out ischemic heart disease possible hypertensive urgency Cardiac cath n.p.o. natalia I spent a total of [15] minutes coordinating, documenting, and providing care for this patient excluding time spent in the performance of separately billed services or time spent by another provider. History of Present Illness Reason for Consultation: Chest pain Requesting Physician: Dr. Alvarado Attending Physician: John Carvalho MD History of Present Illness Shawn Church is a very pleasant 47-year-old female who was driving her automobile Monday around 5 PM when she began to experience a burning ("like hot red pepper ") in her neck and upper chest and under her breasts. She notes trying to breathe but not feeling short of breath. Discomfort radiated into the left arm and was associated with left arm numbness. She was able to drive home where she went and lay down for approximately 2 hours. Her oldest son then noted that she did not look good. She was brought to the emergency room. Initial blood pressure was 176/124 followed by a reading of 185/113. EKG revealed sinus tachycardia 106 bpm with left atrial enlargement, without acute ST segment change. Initial high-sensitivity troponin: 8.5 -> 44.3 -> 79.2 -> 92.1. Chest x-ray showed no active disease in the chest. CT of the chest was negative for PE or aortic dissection, without acute cardiopulmonary disease. Continuous telemetry monitoring personally reviewed, revealing sinus in the 90s at present, with intermittent sinus tachycardia into the 130s. White blood cell count was mildly elevated on presentation. H&H within normal range. Creatinine 0.88. Hemoglobin A1c 5.9%. Lipid panel with total cholesterol 321, LDL 198, triglycerides 367, HDL 54. Patient chest pain-free since admission. Past Medical and Surgical History Mixed dyslipidemia Prediabetes Significant family history of ischemic heart disease Family History: Father underwent CABG at the age of 53. Uncle had an DC at 56. Mother is alive at 76 with type 2 diabetes mellitus, hypertension, dyslipidemia. Sister is in perfect health. Social History: Non-smoker. No smokeless tobacco. No illegal/illicit drug use. Social alcohol only, 1/month. , is currently out of the country, flying back today. 2 children aged 21 and 12. 12-year-old with high cholesterol. Allergies Allergy/AdvReac Type Severity Reaction Status Date / Time nitrofurantoin Allergy Mild Shortness Verified 06/17/23 19:48 [From Macrobid] of Breath Home Medications Medication Instructions Recorded Confirmed Type ibuprofen 200 mg tablet 200 mg PO Q8H PRN Fever Or Pain 01/11/19 06/17/23 History Patient History Medical History Migraine headache History of oligohydramnios Cervical polyp Surgical History History of section S/P section Family History Grandmother (Paternal) Alzheimer disease Grandfather No problems noted. Grandfather (Maternal) Cancer Diabetes Grandmother (Maternal) Diabetes Mother Hypertension Grandfather (Paternal) Heart disease Father Heart disease Denies family history of Ovarian cancer Breast cancer Colorectal cancer Social History Smoking Status: Never smoker Second Hand Exposure: No; Do You Dip or Chew Tobacco: No; Tobacco Cessation Education Requested by Patient: No Hx Alcohol Use: No Hx Substance Use: No Preferred Language: Sinhala Communication Ability: Effective Mobile Nurse Required: No Beliefs That Will Affect Care: None marital status: Current Living Situation: Spouse and Family Other Information That Helps Us Care for You: No Feels Safe at Home: Yes Safety Concerns: Feels Safe At This Time Assistive Devices: None Review of Systems Review of Systems: Complete Review of Systems: Constitutional: No fevers, chills, or night sweats. HEENT: headaches. No history of amaurosis fugax. Pulmonary: No history of asthma, emphysema, or COPD Cardiac: See above. GI/Abd: No dysphagia. No GERD. No melana or hematochezia. No kidney problems. No liver problems. No history of pancreatic issues. Vascular: No history of carotid artery disease, AAA, or lower extremity claudication/PAD. Hematologic: No coagulation disorder, anemia, or abnormal bleeding. Musculoskeletal: Negative. Skin: No rash. Neurologic: No history of TIA/CVA, or seizure disorder. Female : + Menses presently Endocrine: No thyroid trouble. Complete Review of Systems is as stated above, negative, or noncontributory Physical Exam Physical Exam: General: A&Ox3. NAD. Anxious. HENT: Normocephalic. Atraumatic. Eyes: PER. Conjunctiva pink, sclera clear. Neck: No carotid bruits. No JVD. No HJR. Heart: RRR. No murmur. No rub. No gallop. PMI is nondisplaced. Lungs: Clear to auscultation. Abdomen: +BS. Soft. Nontender. No masses or organomegaly. Extremities: No clubbing, cyanosis, or edema. Limited neurological examination is without focal deficits. Pulses: radial=2/4, posterior tibial=2/4. Results & Data Vital Signs (Past 12 Hours) Vital Signs Temp Pulse Pulse Resp BP BP Pulse Ox 06/18/23 08:56 101 H 149/88 H 97 06/18/23 08:53 101 H 124/76 99 06/18/23 07:50 36.7 C 79 18 153/92 H 99 06/18/23 07:26 06/18/23 07:00 73 06/18/23 05:35 36.5 C 71 18 147/81 H 98 06/18/23 05:35 06/18/23 05:20 36.5 C 71 18 147/81 H 98 06/18/23 05:00 06/18/23 04:00 64 15 111/70 96 06/18/23 03:49 65 06/18/23 03:00 69 14 115/74 96 06/18/23 01:00 74 18 111/74 99 06/17/23 23:45 79 06/17/23 23:00 79 20 122/76 99 Pulse Ox O2 Del Method O2 Del Method 06/18/23 08:56 Room Air 06/18/23 08:53 Room Air 06/18/23 07:50 Room Air 06/18/23 07:26 Room Air 06/18/23 07:00 06/18/23 05:35 Room Air 06/18/23 05:35 98 Room Air 06/18/23 05:20 Room Air 06/18/23 05:00 96 Room Air 06/18/23 04:00 Room Air 06/18/23 03:49 06/18/23 03:00 Room Air 06/18/23 01:00 Room Air 06/17/23 23:45 06/17/23 23:00 Laboratory Results Cardiac Enzymes 06/17/23 06/17/23 06/18/23 Range/Units 19:50 22:13 00:12 AST 18 (13-39) U/L Troponin I High Sens 8.5 44.3 H D 79.2 H* D (0-14) pg/ml 06/18/23 06/18/23 Range/Units 05:23 09:55 AST (13-39) U/L Troponin I High Sens 92.1 H* D 91.3 H* (0-14) pg/ml Coagulation 06/18/23 Range/Units 05:23 APTT 28 (21-31) Seconds Lipids 06/18/23 Range/Units 05:23 Triglycerides 367 H (0-150) mg/dl Cholesterol 321 H (0-200) mg/dl HDL Cholesterol 50 mg/dl Cholesterol/HDL Ratio 6.4 H (0-5) CBC 06/17/23 06/18/23 Range/Units 19:50 05:23 WBC 13.08 H 9.61 (4.8-10.8) K/ul RBC 4.86 4.50 (4.20-5.40) M/uL Hgb 14.4 13.6 (12.0-16.0) g/dl Hct 44.1 40.6 (37.0-47.0) % Plt Count 298 291 (130-400) K/uL Neut # (Auto) 7.37 H 5.29 (1.40-6.50) K/uL Lymph # (Auto) 4.63 H 3.44 H (1.20-3.40) K/uL [place] # (Auto) 0.89 H 0.71 H (0.11-0.59) K/uL Eos # (Auto) 0.11 0.11 (0.00-0.50) K/uL Baso # (Auto) 0.05 0.04 (0.00-0.20) K/uL Comprehensive Metabolic Panel 06/17/23 06/18/23 Range/Units 19:50 05:23 Sodium 139 140 (136-145) mmol/L Potassium 3.5 3.8 (3.5-5.1) mmol/L Chloride 104 107 (98-107) mmol/L Carbon Dioxide 26 27 (21-32) mmol/L BUN 14 15 (6-23) mg/dl Creatinine 0.95 0.88 (0.6-1.2) mg/dl Glucose 106 H 100 H (70-99(Fasting)) mg/dl Calcium 9.8 9.0 (8.6-10.3) mg/dl AST 18 (13-39) U/L ALT 14 (7-52) U/L Alkaline Phosphatase 43 (34-104) U/L Total Protein 7.7 (6.0-8.3) gm/dl Albumin 4.7 (3.4-5.0) gm/dl Intake and Output 06/17/23 06/18/23 06/18/23 22:59 06:59 14:59 Intake Total 1000 / 1050 50 / 1050 Balance 1000 / 1050 50 / 1050 Intake: IV 1000 / 1000 Sodium Chloride 0.9% 1,000 ml @ 1000 / 1000 999 mls/hr IV .Q1H1M ONE Rx#: [id number] Tube Irrigant 50 / 50 Other: # Unmeasured Voids 1 Weight 62.4 kg 68.8 kg Weight Measurement Method Chair Scale Built in [facility] (4) Chest pain Chest pain type: unspecified Qualified Code(s): R07.9 - Chest pain, unspecified
[2023-06-18] MEDS: HEPARIN SODIUM/DEXTROSE 25,000 UNITS/500 ML BAG IV SCH (12:00)
[2023-06-18] MEDS ORDERED: Nursing to Pharmacy Communication SCH (12:00)
[2023-06-18] MEDS: Heparin IV Adult Wt-Based Standard *NO* INITIAL Bolus Protocol IV STA (12:01)
--- NOTE | 2023-06-18 12:23 | Hospitalist Progress Note ---
Date of Service June 18, 2023 Assessment & Plan (1) Chest pain: Plan: Chest pain Hypertensive urgency R/o ACS --CTA:Normal CTA of the chest with no pulmonary embolus or aortic dissection. No acute cardiopulmonary disease. --ECHO pending --Mild elevation of Troponin -- EKG showed no signs of acute ischemia Continue aspirin, metoprolol, statin, Lisinopril Also started on IV heparin Appreciate cardiology input Plan for cardiac catheterization tomorrow N.p.o. after midnight Hyperlipidemia Started on statin Prediabetes HbA1c 5.9 DVT Px: IV Heparin Code Status Full code Admission and Anticipated Discharge Date Admission Date: June 18, 2023 Subjective Patient is seen and examined at bedside Chest pain, left upper extremity numbness, tingling improved Denies any dizziness, dyspnea, nausea, vomiting, abdominal pain Started on IV heparin No other complaints Review of Systems Review of Systems: All systems reviewed & are unremarkable except as noted in Subjective Physical Exam Physical Exam: Physical Exam: Vitals signs as noted above General Appearance:Moderately built and nourished, no apparent distress Head: normocephalic, Atraumatic Eyes: normal inspection, EOMI Neck: supple, Trachea midline Respiratory/Chest: Normal breath sounds, CTA, No accessory muscle use Cardiovascular: S1, S2, No murmur Abdomen/GI:Soft, Non tender, Bowel sounds present Extremities/Musculoskeletal:normal inspection, no edema Neurologic/Psych:AAOX3, grossly no focal neurological deficits Skin: normal color, warm Results & Data Results & Data Vital Signs (Past 12 Hours) Vital Signs Temp Pulse Pulse Resp BP BP Pulse Ox 06/18/23 11:46 36.8 C 92 H 18 149/83 H 96 06/18/23 08:56 101 H 149/88 H 97 06/18/23 08:53 101 H 124/76 99 06/18/23 07:50 36.7 C 79 18 153/92 H 99 06/18/23 07:26 06/18/23 07:00 73 06/18/23 05:35 36.5 C 71 18 147/81 H 98 06/18/23 05:35 06/18/23 05:20 36.5 C 71 18 147/81 H 98 06/18/23 05:00 06/18/23 04:00 64 15 111/70 96 06/18/23 03:49 65 06/18/23 03:00 69 14 115/74 96 06/18/23 01:00 74 18 111/74 99 Pulse Ox O2 Del Method O2 Del Method 06/18/23 11:46 Room Air 06/18/23 08:56 Room Air 06/18/23 08:53 Room Air 06/18/23 07:50 Room Air 06/18/23 07:26 Room Air 06/18/23 07:00 06/18/23 05:35 Room Air 06/18/23 05:35 98 Room Air 06/18/23 05:20 Room Air 06/18/23 05:00 96 Room Air 06/18/23 04:00 Room Air 06/18/23 03:49 06/18/23 03:00 Room Air 06/18/23 01:00 Room Air Laboratory Results Short CBC 06/17/23 06/18/23 Range/Units 19:50 05:23 WBC 13.08 H 9.61 (4.8-10.8) K/ul Hgb 14.4 13.6 (12.0-16.0) g/dl Hct 44.1 40.6 (37.0-47.0) % Plt Count 298 291 (130-400) K/uL BMP 06/17/23 06/18/23 19:50 05:23 Sodium 139 140 Potassium 3.5 3.8 Chloride 104 107 Carbon Dioxide 26 27 BUN 14 15 Creatinine 0.95 0.88 Glucose 106 H 100 H Calcium 9.8 9.0 Liver Function 06/17/23 Range/Units 19:50 Total Bilirubin 0.4 (0.2-1.0) mg/dl AST 18 (13-39) U/L ALT 14 (7-52) U/L Alkaline Phosphatase 43 (34-104) U/L Albumin 4.7 (3.4-5.0) gm/dl (1) Chest pain Chest pain type: unspecified Qualified Code(s): R07.9 - Chest pain, unspecified
[2023-06-18] MEDS: METOPROLOL TARTRATE 25 MG TAB PO SCH (12:36)
[2023-06-18 19:16] LABS: ANTI-Xa, UFH(UnfractionatedHep 0.67 IU/ml (0.3-0.7)
[2023-06-18] MEDS: SODIUM CHLORIDE 0.9% 1,000 ML IV ONE (19:59)
[2023-06-19 05:16] LABS: Hematocrit (blood only) 39.8 % (37.0-47.0); Hemoglobin 13.1 g/dl (12.0-16.0); Mean Corpuscular Hemoglobin 29.6 pg (25.0-34.0); Mean Corpuscular Hgb Conc 32.9 g/dL (32.0-36.0); Mean Corpuscular Volume 89.8 fL (80.0-100.0); Mean Platelet Volume 10.3 fL (9.4-12.4); Platelet Count 274 K/uL (130-400); RDW Coefficient of Variation 12.2 % (11.5-14.5); RDW Standard Deviation 40.4 fL (36.4-46.3); Red Blood Count 4.43 M/uL (4.20-5.40); White Blood Count 10.44 K/ul (4.8-10.8)
[2023-06-19 05:25] LABS: BUN Creatinine Ratio 17.8 (10-20); Creatinine Clr Calc Pharmacy 89.8 ml/min; Est GFR (African American) 112.9 ml/min; Est GFR (Non-African American) 97.4 ml/min; Magnesium 1.9 mg/dl (1.7-2.4); Potassium 3.9 mmol/L (3.5-5.1)
[2023-06-19 05:54] LABS: ANTI-Xa, UFH(UnfractionatedHep 1.21 IU/ml (0.3-0.7)
[2023-06-19 07:30] LABS: Pregnancy Test, Urine Negative (Negative)
[2023-06-19 08:15] LABS: ANTI-Xa, UFH(UnfractionatedHep 0.72 IU/ml (0.3-0.7)
[2023-06-19 08:43] LABS: ANTI-Xa, UFH(UnfractionatedHep 0.47 IU/ml (0.3-0.7)
[2023-06-19] MEDS: SODIUM CHLORIDE 0.9% 1,000 ML IV SCH (10:16)
--- NOTE | 2023-06-19 11:41 | Cardiology Progress Note ---
Date of Service June 19, 2023 Assessment & Plan (1) Elevated troponin: (2) Hypertensive urgency: (3) Paresthesia of left arm: (4) Chest pain: Plan Patient presented after developing chest pain radiating to left arm at rest. No recurrence of symptoms. EKGs with now ST evolution inferior leads question inflammation pericarditis versus myocardial injury Echocardiogram with preserved LV function Cardiac catheterization scheduled for this morning Procedure and risks explained in detail to the patient and , informed consent obtained I spent a total of 40 minutes on the date of service in preparation, delivery, and documentation of the care provided to this patient excluding any time spent in the performance of separately billed services. This visit was a split-shared visit with the substantive portion of the medical decision making performed by the supervising choker setter/billing provider. Admission and Anticipated Discharge Date Admission Date: June 18, 2023 Subjective Patient seen and examined, chart, medications, telemetry reviewed No complaints overnight anxious about initial findings. No further chest pain or shortness of breath no dizziness or lightheadedness. Troponin peaked at [address] flat. EKG with ST elevation on testing today No pleuritic discomfort No fevers chills Physical Exam Constitutional: WD/WN, vitals as above Eyes: PERRL, conjunctivae normal, anicteric sclerae ENMT: external ear and nose normal, oropharynx normal Neck: trachea midline, no thyromegaly Respiratory: normal respiratory effort, lungs clear to auscultation Cardiovascular: Rate/Rhythm: regular rate and regular rhythm Heart Sounds: normal S1 and normal S2; no gallop and no murmur Palpation: normal PMI Vessels: normal carotid upstroke and radial pulses present; no JVD and no carotid bruit Extremities: no edema Gastrointestinal (Abdomen): normal bowel sounds, soft, nontender, no hepatosplenomegaly Musculoskeletal: no cyanosis or clubbing, extremities motor strength 5/5 Skin: no rashes, warm and dry Neurologic: PERRL, EOMI, accommodation nl, no face palsy, no dysarthria Psychiatric: A+Ox3, euthymic affect Results & Data Vital Signs (Past 12 Hours) Vital Signs Temp Pulse Resp BP BP Pulse Ox O2 Del Method 06/19/23 07:07 36.4 C L 63 18 99/63 L 98 Room Air 06/19/23 04:00 36.6 C 64 18 110/68 98 Room Air Laboratory Results Laboratory Results - last 24 hr 06/18/23 06/19/23 06/19/23 18:11 04:52 07:10 WBC 10.44 RBC 4.43 Hgb 13.1 Hct 39.8 MCV 89.8 MCH 29.6 MCHC 32.9 RDW Std Deviation 40.4 RDW Coeff of Aashish 12.2 Plt Count 274 MPV 10.3 Heparin Anti-Xa, Unfract 0.67 1.21 H* Sodium 139 Potassium 3.9 Chloride 107 Carbon Dioxide 25 Anion Gap 7 BUN 13 Creatinine 0.73 Est Cr Clr Drug Dosing 89.8 Est GFR ( Amer) 112.9 Est GFR (Non-Af Amer) 97.4 BUN/Creatinine Ratio 17.8 Glucose 110 H Calcium 9.0 Magnesium 1.9 Urine Test Negative 06/19/23 06/19/23 07:35 08:24 WBC RBC Hgb Hct MCV MCH MCHC RDW Std Deviation RDW Coeff of Aashish Plt Count MPV Heparin Anti-Xa, Unfract 0.72 H* 0.47 Sodium Potassium Chloride Carbon Dioxide Anion Gap BUN Creatinine Est Cr Clr Drug Dosing Est GFR ( Amer) Est GFR (Non-Af Amer) BUN/Creatinine Ratio Glucose Calcium Magnesium Urine Test (4) Chest pain Chest pain type: unspecified Qualified Code(s): R07.9 - Chest pain, unspecified
--- NOTE | 2023-06-19 11:48 | Pre Anesthesia Assessment ---
Date of Service June 19, 2023 Pre Sedation Assessment Vital Signs Temp Pulse Pulse Resp BP BP Pulse Ox 06/19/23 11:55 84 14 131/87 95 06/19/23 07:07 36.4 C L 63 18 99/63 L 98 06/19/23 04:00 36.6 C 64 18 110/68 98 06/18/23 23:09 36.7 C 68 20 109/75 99 06/18/23 23:00 67 06/18/23 20:00 36.8 C 79 20 106/71 98 06/18/23 15:31 36.6 C 83 18 125/75 97 06/18/23 15:00 74 O2 Del Method 06/19/23 11:55 Room Air 06/19/23 07:07 Room Air 06/19/23 04:00 Room Air 06/18/23 23:09 Room Air 06/18/23 23:00 06/18/23 20:00 Room Air 06/18/23 15:31 Room Air 06/18/23 15:00 Cardiovascular RRR, no murmur, no edema + femoral pulses present and + radial pulses present; no JVD no edema Respiratory normal respiratory effort, lungs clear to auscultation Pre-Sedation Airway Assessment Smoking Status: Never smoker Mallampati Class: II NPO Status Date of Last Intake of Fluids: 06/18/23 Date of Last Intake of Solid Food: 06/18/23 Procedure Planning Contraindications for Sedation: none Current Medications Reviewed: Yes Notes The planned sedation has been discussed with the patient. Informed Consent was obtained. I have identified the patient, determined the appropriateness of sedation and have assessed the patient immediately prior to the procedure. All medicine(s) and interventions are by my order.
[2023-06-19] MEDS: niCARdipine HCL INJ 2.5 MG/ML 10 ML AMP ONE (12:32)
[2023-06-19] MEDS: NITROGLYCERIN/D5W 100MCG/ML 20ML SYR ONE (12:33)
[2023-06-19] MEDS: fentaNYL citrate PF 100 MCG/2 ML VIAL ONE (12:49)
[2023-06-19] MEDS: HEPARIN (PORCINE) 1000 UNIT/ML 10 ML (CATH LAB USE ONLY) ONE (12:51)
[2023-06-19] MEDS: OPTIRAY 350 ONE (12:51)
[2023-06-19] MEDS: MIDAZOLAM HCL 1 MG/ML 2ML VIAL ONE (12:51)
--- NOTE | 2023-06-19 12:57 | Post Anesthesia Assessment ---
Date of Service June 19, 2023 Post Sedation Assessment Vital Signs Temp Pulse Pulse Resp BP BP Pulse Ox 06/19/23 11:55 84 14 131/87 95 06/19/23 11:13 36.7 C 77 18 115/69 98 06/19/23 07:07 36.4 C L 63 18 99/63 L 98 06/19/23 04:00 36.6 C 64 18 110/68 98 06/18/23 23:09 36.7 C 68 20 109/75 99 06/18/23 23:00 67 06/18/23 20:00 36.8 C 79 20 106/71 98 06/18/23 15:31 36.6 C 83 18 125/75 97 06/18/23 15:00 74 O2 Del Method 06/19/23 11:55 Room Air 06/19/23 11:13 Room Air 06/19/23 07:07 Room Air 06/19/23 04:00 Room Air 06/18/23 23:09 Room Air 06/18/23 23:00 06/18/23 20:00 Room Air 06/18/23 15:31 Room Air 06/18/23 15:00 Recovery Score Activity: Moves 4 extremities Respiration: Deep Breath/Cough Circulation: +/-20% PreAnes Value Consciousness: Fully Awake Oxygen Saturation: > 92% On Room Air Discharge Sedation Level of Care: Phase I Post Sedation Plan On clinical assessment, the patient appears to have tolerated the sedation without complications. Patient is recovering as anticipated. Patient will continue to be monitored by nursing and may be discharged when sedation discharge criteria are met per below protocol. Upon Completions of procedure up to 15 minutes continue every 5 minute vital signs and the P.A.R. score; then discharge to a Phase I or Fast Track to Phase II per the following guidelines: * Discharge Patient to appropriate Phase II area if PAR is 8 or greater or return to pre- procedure baseline. The post - procedure orders will be as directed. * If PAR score is less than 8 or not return to pre-procedure baseline then patient will follow Phase I monitoring till PAR is reached for Phase II. The Phase I may be done in procedure room or may call to secure a Phase I area. * If naloxone or flumazenil are used for reversal, hold in Phase I for continued monitoring from when last reversal dose was given for a minimum of 60 minutes or longer pending the nurse and/or physician discretion of patient condition before discharge to Phase II. Please call the Sedation Physician to re-evaluate and complete post-note for discharge to Phase II area. Do NOT discharge from procedure sedation or Phase 1 until post- sedation evaluation note is complete by procedure /sedation MD Sedation Discharge Instructions to be given to the patient at discharge to home.
--- NOTE | 2023-06-19 12:58 | Cardiac Catheterization ---
Cardiac Cath Procedure Brief Procedure Date June 19, 2023 Pre-Procedure Diagnosis Pre-Procedure Diagnosis: Angina and Positive Stress Test AUC Score AUC Score: 7 Post-Procedure Diagnosis Post-Procedure Diagnosis: Normal Coronary Arteries and Normal LV Systolic Function Procedure(s) Performed Procedure(s) Performed: Coronary Angiography, Left Heart Cath and LV Angiography Software Integrator Tino Edouard MD Client Sales And Service Officer(s) Alber Garcia Estimated Blood Loss Estimated Blood Loss: <15cc Medication(s) Medication(s): Fentanyl (12.5 mcg IV), Heparin (2500 units IV), Lidocaine 1% (Local infiltration access site), Nicardipine (250 mcg intra-arterial after arterial sheath insertion) and Versed (1 mg IV) Preliminary Findings Impression: Modest caliber normal coronary anatomy, right dominant Normal left ventricular systolic function and end-diastolic pressure Procedure: Coronary and LV angiography, left heart catheterization via right radial access without difficulty Catheters: 6 [place] long glide radial access sheath, 5 [place], 5 [place] straight pigtail Coronary angiography: Right dominant anatomy Left main: Moderate caliber free of disease Left anterior descending: Type III in distribution. It gives rise to a large diagonal branch in its proximal portion to moderate caliber diagonal branches in its midportion before coursing beyond the apex. There is no disease in the left anterior descending Left circumflex small vessel consisting of an atrial branch a trivial first marginal branch and a small to moderate size second marginal branch. There are mild luminal irregularities only Right coronary artery: Small caliber dominant vessel. It gives rise to a conus branch at its origin, 2 small right ventricular branches in its midportion and at the AV groove at thin posterior sending artery and along the AV groove to small posterior ventricular branches. There is no disease in the right coronary artery LV angiography: Left ventricle is vertically oriented there are no wall motion abnormalities EF 65%. There is no mitral insufficiency. LVEDP 11 Procedural Complication(s) None
--- NOTE | 2023-06-19 13:12 | Cardiac Catheterization ---
Cardiac Cath Procedure Full Procedure Date June 19, 2023 Pre-Procedure Diagnosis Pre-Procedure Diagnosis: Angina and Positive Stress Test AUC Score AUC Score: 7 Post-Procedure Diagnosis Post-Procedure Diagnosis: Normal Coronary Arteries and Normal LV Systolic Function Procedure(s) Performed Procedure(s) Performed: Coronary Angiography, Left Heart Cath and LV Angiography Bulb Tester Tino Edouard MD Technical Publications Manager(s) Alber Garcia Estimated Blood Loss Estimated Blood Loss: <15cc Medication(s) Medication(s): Fentanyl (12.5 mcg IV), Heparin (2500 units IV), Lidocaine 1% (Local infiltration access site), Nicardipine (250 mcg intra-arterial after arterial sheath insertion) and Versed (1 mg IV) Summary of Findings Impression: Modest caliber normal coronary anatomy, right dominant Normal left ventricular systolic function and end-diastolic pressure Procedure: Coronary and LV angiography, left heart catheterization via right radial access without difficulty Catheters: 6 [place] long glide radial access sheath, 5 [place], 5 [place] straight pigtail Coronary angiography: Right dominant anatomy Left main: Moderate caliber free of disease Left anterior descending: Type III in distribution. It gives rise to a large diagonal branch in its proximal portion to moderate caliber diagonal branches in its midportion before coursing beyond the apex. There is no disease in the left anterior descending Left circumflex small vessel consisting of an atrial branch a trivial first marginal branch and a small to moderate size second marginal branch. There are mild luminal irregularities only Right coronary artery: Small caliber dominant vessel. It gives rise to a conus branch at its origin, 2 small right ventricular branches in its midportion and at the AV groove at thin posterior sending artery and along the AV groove to small posterior ventricular branches. There is no disease in the right coronary artery LV angiography: Left ventricle is vertically oriented there are no wall motion abnormalities EF 65%. There is no mitral insufficiency. LVEDP 11 Hemodynamics Rest Ao:: 118/67/89 Final Ao: 149/81/108 LV: 147/0/11 Recommendations Recommendations: Medical Therapy and/or Counseling Radiation Exposure (mGy) 291 Contrast (mls) 80 Fluids (cc crystalloids) Fluids (cc crystalloids): 70 Anesthesia Start time: 1226, stop time: 1245 Procedural Complication(s) None Disposition PCU I attest to the content of the Intraoperative Record and any orders documented therein. Any exceptions are noted below. ACC Data: Drawing Operator Cardiac Status Clinical evaluation leading to the procedure 47-year-old female with marked hyperlipidemia developed severe chest pain at rest radiating to the left arm with prompt resolve, troponin elevated. No initial acute EKG changes. Late development of ST elevation inferiorly CAD Presenation: Unstable angina Anginal Classification: CCS IV Heart Failure: No Cardiogenic Shock within 24 Hours: No Cardiac Arrest within 24 Hours: No Imaging Studies Past 6 Months: Yes Stress Studies Past 6 Months: No Standard Exercise Test: No Stress Echocardiogram: No Stress Testing w/SPECT MPI: No Cardiac CTA: No Coronary Anatomy Dominant: Right Left Main (% Stenosis): Normal LAD (% Stenosis): Normal D1 (% Stenosis): Normal D2 (% Stenosis): Normal D3 (% Stenosis): Normal OM1 (% Stenosis): Normal OM2 (% Stenosis): Mid (Mild luminal irregularities) RCA (% Stenosis): Ostial (Mild origin taper) R PDA (% Stenosis): Normal R PL1 (% Stenosis): Normal R PL2 (% Stenosis): Normal Left Ventricular Angiography EF (%): 65 Mitral Regurgitation: None Diagnostic Physicians Name: Tino Edouard MD Status: Urgent Closure Device Percutaneous Entry Location: Radial Recommendations: Medical Therapy and/or Counseling
[2023-06-19] MEDS: ACETAMINOPHEN 325 MG TAB PO PRN (13:35)
[2023-06-19] MEDS: ATORVASTATIN 40 MG TAB PO SCH (13:36)
[2023-06-19] MEDS: ASPIRIN 81 MG ECTAB PO SCH (13:37)
--- NOTE | 2023-06-19 13:54 | Electrocardiogram Report ---
Test Reason : Blood Pressure : / mmHG Vent. Rate : 064 BPM Atrial Rate : 064 BPM P-R Int : 192 ms QRS Dur : 086 ms QT Int : 412 ms P-R-T Axes : 078 090 077 degrees QTc Int : 425 ms Normal sinus rhythm Rightward axis ST elevation, consider early repolarization, pericarditis, or injury Abnormal ECG When compared with ECG of 17-JUN-2023 19:39, Vent. rate has decreased BY [address] elevation now present in Inferior leads Non-specific change in ST segment in Lateral leads Confirmed by Rui Rosas ([id number]) on 06/19/2023 1:54:09 PM Referred By: REFERRED SELF Confirmed By:Rui Rosas
--- NOTE | 2023-06-19 16:26 | Hospitalist Progress Note ---
Date of Service June 19, 2023 Assessment & Plan (1) Chest pain: Plan: Chest pain Hypertensive urgency R/o ACS --CTA:Normal CTA of the chest with no pulmonary embolus or aortic dissection. No acute cardiopulmonary disease. --ECHO: Left ventricle systolic function is normal. EF 65 to 70%. Normal left ventricle wall thickness. No mitral regurgitation noted. No tricuspid regurgitation. No regional wall motion admitted with --Mild elevation of Troponin -- EKG showed no signs of acute ischemia --S/P Cardiac Cath:Modest caliber normal coronary anatomy, right dominant. Normal left ventricular systolic function and end-diastolic pressure Continue aspirin, metoprolol, statin IV heparin discontinued Appreciate cardiology input Hyperlipidemia Continue statin Prediabetes HbA1c 5.9 DVT Px: SCDs Code Status Full code Admission and Anticipated Discharge Date Admission Date: June 18, 2023 Subjective Patient is seen and examined at bedside States having headache this morning, anxious for cardiac catheterization earlier Discussed with patient's family at bedside No recurrence of chest pain Denies any dyspnea, dizziness, nausea, vomiting, abdominal pain No other complaints Review of Systems Review of Systems: All systems reviewed & are unremarkable except as noted in Subjective Physical Exam Physical Exam: Physical Exam: Vitals signs as noted above General Appearance:Moderately built and nourished, no apparent distress Head: normocephalic, Atraumatic Eyes: normal inspection, EOMI Neck: supple, Trachea midline Respiratory/Chest: Normal breath sounds, CTA, No accessory muscle use Cardiovascular: S1, S2, No murmur Abdomen/GI:Soft, Non tender, Bowel sounds present Extremities/Musculoskeletal:normal inspection, no edema Neurologic/Psych:AAOX3, grossly no focal neurological deficits Skin: normal color, warm Results & Data Results & Data Vital Signs (Past 12 Hours) Vital Signs Temp Pulse Pulse Resp BP Pulse Ox O2 Del Method 06/19/23 15:36 71 06/19/23 15:30 36.7 C 83 18 129/87 96 Room Air 06/19/23 14:30 36.8 C 77 18 131/72 97 Room Air 06/19/23 14:10 36.8 C 80 18 140/71 97 Room Air 06/19/23 13:55 36.8 C 81 18 119/80 96 Room Air 06/19/23 13:40 36.8 C 72 18 121/80 97 Room Air 06/19/23 13:25 36.8 C 62 18 123/78 96 Room Air 06/19/23 13:10 67 16 130/81 97 Room Air 06/19/23 12:55 72 16 134/70 96 Room Air 06/19/23 11:55 84 14 131/87 95 Room Air 06/19/23 11:13 36.7 C 77 18 115/69 98 Room Air 06/19/23 08:00 63 06/19/23 07:07 36.4 C L 63 18 99/63 L 98 Room Air Laboratory Results Short CBC 06/19/23 Range/Units 04:52 WBC 10.44 (4.8-10.8) K/ul Hgb 13.1 (12.0-16.0) g/dl Hct 39.8 (37.0-47.0) % Plt Count 274 (130-400) K/uL BMP 06/19/23 04:52 Sodium 139 Potassium 3.9 Chloride 107 Carbon Dioxide 25 BUN 13 Creatinine 0.73 Glucose 110 H Calcium 9.0 (1) Chest pain Chest pain type: unspecified Qualified Code(s): R07.9 - Chest pain, unspecified
--- NOTE | 2023-06-19 16:35 | Communication Note ---
Date of Service: June 19, 2023 Patient examined postcardiac ablation. Procedure and results discussed in detail with patient and . No signs of obstructive macrovascular disease Component of microvascular disease not excluded given hypertensive presentation, EKG abnormalities and troponin elevation Plan: Continue metoprolol 25 mg p.o. twice daily, aspirin 81 mg/day Add amlodipine 2.5 mg nightly. Will hold lisinopril for time being Patient desires to make concerted dietary activity efforts. May qualify for cardiac rehab Aggressive lipid reduction continue atorvastatin at current dosing Follow-up cardiology 3 to 4 weeks. Promptly report recurrent of symptoms
[2023-06-19] MEDS: amLODIPine BESYLATE 5 MG TAB PO SCH (20:13)
[2023-06-20 02:31] LABS: Hematocrit (blood only) 39.8 % (37.0-47.0); Hemoglobin 13.3 g/dl (12.0-16.0); Mean Corpuscular Hemoglobin 30.1 pg (25.0-34.0); Mean Corpuscular Hgb Conc 33.4 g/dL (32.0-36.0); Mean Platelet Volume 10.1 fL (9.4-12.4); Platelet Count 286 K/uL (130-400); RDW Coefficient of Variation 12.1 % (11.5-14.5); RDW Standard Deviation 40.3 fL (36.4-46.3); Red Blood Count 4.42 M/uL (4.20-5.40); White Blood Count 8.75 K/ul (4.8-10.8)
[2023-06-20 02:33] LABS: BUN Creatinine Ratio 15.7 (10-20); Calcium 9.2 mg/dl (8.6-10.3); Creatinine Clr Calc Pharmacy 73.5 ml/min; Est GFR (African American) 88.8 ml/min; Est GFR (Non-African American) 76.6 ml/min; Magnesium 1.9 mg/dl (1.7-2.4)
--- NOTE | 2023-06-20 09:17 | Electrocardiogram Report ---
Test Reason : Blood Pressure : / mmHG Vent. Rate : 096 BPM Atrial Rate : 096 BPM P-R Int : 174 ms QRS Dur : 088 ms QT Int : 364 ms P-R-T Axes : 074 076 062 degrees QTc Int : 459 ms Normal sinus rhythm Normal ECG When compared with ECG of 17-JUN-2023 19:39, No significant change was found Confirmed by Rui Rosas ([id number]) on 06/20/2023 9:16:54 AM Referred By: REFERRED SELF Confirmed By:Rui Rosas
--- NOTE | 2023-06-20 11:44 | Hospitalist Progress Note ---
Date of Service June 20, 2023 Assessment & Plan (1) Chest pain: Plan: Chest pain Hypertensive urgency R/o ACS --CTA:Normal CTA of the chest with no pulmonary embolus or aortic dissection. No acute cardiopulmonary disease. --ECHO: Left ventricle systolic function is normal. EF 65 to 70%. Normal left ventricle wall thickness. No mitral regurgitation noted. No tricuspid regurgitation. No regional wall motion admitted with --Mild elevation of Troponin -- EKG showed no signs of acute ischemia --S/P Cardiac Cath:Modest caliber normal coronary anatomy, right dominant. Normal left ventricular systolic function and end-diastolic pressure Continue aspirin, metoprolol, statin IV heparin discontinued Appreciate cardiology input Advised to follow-up with cardiology on discharge Hyperlipidemia Continue statin Prediabetes HbA1c 5.9 DVT Px: SCDs Code Status Full code Disposition Home Admission and Anticipated Discharge Date Admission Date: June 18, 2023 Subjective Patient is seen and examined at bedside States feeling well offers no new complaints family at bedside Denies any chest pain, dyspnea, dizziness, nausea, vomiting, abdominal pain Discussed with Cardiology today Review of Systems Review of Systems: All systems reviewed & are unremarkable except as noted in Subjective Physical Exam Physical Exam: Physical Exam: Vitals signs as noted above General Appearance:Moderately built and nourished, no apparent distress Head: normocephalic, Atraumatic Eyes: normal inspection, EOMI Neck: supple, Trachea midline Respiratory/Chest: Normal breath sounds, CTA, No accessory muscle use Cardiovascular: S1, S2, No murmur Abdomen/GI:Soft, Non tender, Bowel sounds present Extremities/Musculoskeletal:normal inspection, no edema Neurologic/Psych:AAOX3, grossly no focal neurological deficits Skin: normal color, warm Results & Data Results & Data Vital Signs (Past 12 Hours) Vital Signs Temp Pulse Resp BP Pulse Ox O2 Del Method 06/20/23 07:12 36.6 C 70 18 115/71 98 Room Air 06/20/23 03:15 36.7 C 64 16 103/66 95 Room Air Laboratory Results Short CBC 06/20/23 Range/Units 02:05 WBC 8.75 (4.8-10.8) K/ul Hgb 13.3 (12.0-16.0) g/dl Hct 39.8 (37.0-47.0) % Plt Count 286 (130-400) K/uL BMP 06/20/23 02:05 Sodium 139 Potassium 4.0 Chloride 108 H Carbon Dioxide 25 BUN 14 Creatinine 0.89 Glucose 97 Calcium 9.2 (1) Chest pain Chest pain type: unspecified Qualified Code(s): R07.9 - Chest pain, unspecified
--- NOTE | 2023-06-20 12:59 | Discharge Summary ---
Date of Service June 20, 2023 Admission HPI Per Admitting Provider History obtained from patient and records. Medical history significant for hyperlipidemia. Patient was driving yesterday when she experienced nonpruritic chest discomfort going to her neck described as burning with some left upper extremity radiation and shortness of breath. No cough symptoms. No abdominal pain. No unusual headache. Admits to bad food choices the last month. Patient consuming salty chips earlier. No prior episodes. Patient brought to ER for evaluation by family. SBP 180s upon arrival at the ER. Patient currently comfortable after aspirin and Toradol administration at the ER. Medical History as above Surgical History : section Family History : Heart disease, DM, lung cancer Personal/Social history : Non-smoker, no EtOH intake, homemaker Admission Exam Per Admitting Provider GENERAL: Comfortable, pleasant, slightly anxious, no respiratory distress SKIN: Normal color, warm HEENT: [place] palpebral conjunctivae, no ptosis, moist buccal mucosa NECK : Supple, no tenderness CHEST : CTA, no tenderness HEART : RRR, no obvious murmurs ABDOMEN: Some distention, nontender EXTREMITIES : No LE swelling/tenderness, no other conspicuous deformities noted NEUROLOGIC : Coherent, no facial asymmetry, no other gross focality Principal Diagnosis Chest pain Hypertensive urgency Hyperlipidemia Prediabetes Discharge Data Allergies Allergy/AdvReac Type Severity Reaction Status Date / Time nitrofurantoin Allergy Mild Shortness Verified 06/17/23 19:48 [From Macrobid] of Breath Consultations 06/18/23 00:53 ED Decision to Admit Stat 06/18/23 01:59 Consult Cardiology Routine 06/20/23 09:45 Burn CD for patient Routine Procedures Performed Operation Date: 06/19/23 11:00 Actual Procedures p Cineradiography w/Routine Exam - Tino Edouard MD p Cath, Left with Cors and Vent - Tino Edouard MD Ordered Studies 06/17/23 20:12 CT angio chest dissec wo/w con Stat 06/19/23 06:34 CL Cath Imgs for PACS use only Routine Laboratory Results WBC 8.75 K/ul (4.8-10.8) 06/20/23 02:05 RBC 4.42 M/uL (4.20-5.40) 06/20/23 02:05 Hgb 13.3 g/dl (12.0-16.0) 06/20/23 02:05 Hct 39.8 % (37.0-47.0) 06/20/23 02:05 MCV 90.0 fL (80.0-100.0) 06/20/23 02:05 MCH 30.1 pg (25.0-34.0) 06/20/23 02:05 MCHC 33.4 g/dL (32.0-36.0) 06/20/23 02:05 RDW Std Deviation 40.3 fL (36.4-46.3) 06/20/23 02:05 RDW Coeff of Aashish 12.1 % (11.5-14.5) 06/20/23 02:05 Plt Count 286 K/uL (130-400) 06/20/23 02:05 MPV 10.1 fL (9.4-12.4) 06/20/23 02:05 Immature Gran % (Auto) 0.2 % 06/18/23 05:23 Neut % (Auto) 55.1 % 06/18/23 05:23 Lymph % (Auto) 35.8 % 06/18/23 05:23 [place] % (Auto) 7.4 % 06/18/23 05:23 Eos % (Auto) 1.1 % 06/18/23 05:23 Baso % (Auto) 0.4 % 06/18/23 05:23 Neut # (Auto) 5.29 K/uL (1.40-6.50) 06/18/23 05:23 Lymph # (Auto) 3.44 K/uL (1.20-3.40) H 06/18/23 05:23 [place] # (Auto) 0.71 K/uL (0.11-0.59) H 06/18/23 05:23 Eos # (Auto) 0.11 K/uL (0.00-0.50) 06/18/23 05:23 Baso # (Auto) 0.04 K/uL (0.00-0.20) 06/18/23 05:23 Immature Gran # (Auto) 0.02 K/uL (0.01-0.20) 06/18/23 05:23 APTT 28 Seconds (21-31) 06/18/23 05:23 PTT Ratio 1.0 06/18/23 05:23 Heparin Anti-Xa, Unfract 0.47 IU/ml (0.3-0.7) 06/19/23 08:24 Sodium 139 mmol/L (136-145) 06/20/23 02:05 Potassium 4.0 mmol/L (3.5-5.1) 06/20/23 02:05 Chloride 108 mmol/L (98-107) H 06/20/23 02:05 Carbon Dioxide 25 mmol/L (21-32) 06/20/23 02:05 Anion Gap 6 (3-11) 06/20/23 02:05 BUN 14 mg/dl (6-23) 06/20/23 02:05 Creatinine 0.89 mg/dl (0.6-1.2) 06/20/23 02:05 Est Cr Clr Drug Dosing 73.5 ml/min 06/20/23 02:05 Est GFR ( Amer) 88.8 ml/min 06/20/23 02:05 Est GFR (Non-Af Amer) 76.6 ml/min 06/20/23 02:05 BUN/Creatinine Ratio 15.7 (10-20) 06/20/23 02:05 Glucose 97 mg/dl (70-99(Fasting)) 06/20/23 02:05 Estimat Average Glucose 123 mg/dl 06/18/23 05:23 Hemoglobin A1c 5.9 % (4.5-5.6) H 06/18/23 05:23 Calcium 9.2 mg/dl (8.6-10.3) 06/20/23 02:05 Phosphorus 3.2 mg/dl (2.5-4.9) 06/17/23 19:50 Magnesium 1.9 mg/dl (1.7-2.4) 06/20/23 02:05 Total Bilirubin 0.4 mg/dl (0.2-1.0) 06/17/23 19:50 AST 18 U/L (13-39) 06/17/23 19:50 ALT 14 U/L (7-52) 06/17/23 19:50 Alkaline Phosphatase 43 U/L (34-104) 06/17/23 19:50 Troponin I High Sens 91.3 pg/ml (0-14) H* 06/18/23 09:55 Total Protein 7.7 gm/dl (6.0-8.3) 06/17/23 19:50 Albumin 4.7 gm/dl (3.4-5.0) 06/17/23 19:50 Globulin 3.0 gm/dl (2.5-4.0) 06/17/23 19:50 Albumin/Globulin Ratio 1.6 (0.9-2) 06/17/23 19:50 Triglycerides 367 mg/dl (0-150) H 06/18/23 05:23 Cholesterol 321 mg/dl (0-200) H 06/18/23 05:23 LDL Cholesterol, Calc 198 mg/dl 06/18/23 05:23 VLDL Cholesterol, Calc 73 mg/dl (0-30) H 06/18/23 05:23 HDL Cholesterol 50 mg/dl 06/18/23 05:23 Cholesterol/HDL Ratio 6.4 (0-5) H 06/18/23 05:23 Lipase 22 U/L (11-82) 06/17/23 19:50 Procalcitonin < 0.02 ng/ml (0-0.5) 06/17/23 19:50 HCG, Qual Negative (Negative) 06/17/23 19:50 Urine Test Negative (Negative) 06/19/23 07:10 Impressions Chest X-Ray 06/17/23 19:42 XR chest 1V portable CLINICAL HISTORY: Chest pain, nonspecific TECHNIQUE: Single frontal radiograph of the chest was obtained. Comparison: Comparison is made to chest radiograph 01/18/2019 FINDINGS: No lines and tubes are seen. The cardiomediastinal silhouette is normal. The lungs are clear. No evidence of pleural effusion or pneumothorax. IMPRESSION: No acute chest disease. ACT 112: Negative or not required by law. Electronically signed by: Lennox Guerrero M.D. 06/18/2023 8:14 AM Chest CTA 06/17/23 20:12 Exam(s): CTA CHEST W/WO Contrast IV Amt: 114ml opti 320 EXAM: CT Angiography Chest Without and With Intravenous Contrast CLINICAL HISTORY: Reason for exam: acute CP, HTN, LUE numbness. TECHNIQUE: Axial computed tomographic angiography images of the chest without and with intravenous contrast. CTDI is 47.98 mGy and DLP is 1069.32 mGy-cm. Automated exposure control was utilized for the study. A dose lowering technique was utilized adhering to the principles of ALARA. MIP reconstructed images were created and reviewed. CONTRAST: Patient received 114ml opti 320 of IV contrast COMPARISON: None. FINDINGS: Pulmonary arteries: Unremarkable. No pulmonary embolism. Aorta: No acute findings. No thoracic aortic aneurysm. Lungs: Unremarkable. No mass. No consolidation. Pleural space: Unremarkable. No significant effusion. No pneumothorax. Heart: Unremarkable. No cardiomegaly. No significant pericardial effusion. No evidence of RV dysfunction. Bones/joints: No acute fracture. No dislocation. Soft tissues: Unremarkable. Lymph nodes: Unremarkable. No enlarged lymph nodes. Other findings: Multilevel degenerative disease of the spine. IMPRESSION: 1. Normal CTA of the chest with no pulmonary embolus or aortic dissection. 2. No acute cardiopulmonary disease. Electronically signed by: Maricruz Baeza MD 06/17/23 21:49 PM Hospital Course (1) Chest pain: Chest pain Hypertensive urgency R/o ACS --CTA:Normal CTA of the chest with no pulmonary embolus or aortic dissection. No acute cardiopulmonary disease. --ECHO: Left ventricle systolic function is normal. EF 65 to 70%. Normal left ventricle wall thickness. No mitral regurgitation noted. No tricuspid regurgitation. No regional wall motion admitted with --Mild elevation of Troponin -- EKG showed no signs of acute ischemia --S/P Cardiac Cath:Modest caliber normal coronary anatomy, right dominant. Normal left ventricular systolic function and end-diastolic pressure Continue aspirin, metoprolol, statin IV heparin discontinued Appreciate cardiology input Advised to follow-up with cardiology on discharge Hyperlipidemia Continue statin Prediabetes HbA1c 5.9 DVT Px: SCDs Code Status Full code Disposition Home Total Time Total Time Spent Total Time Spent (In Minutes): 56 minutes Discharge Plan Discharge Items Patient Disposition: Home - Self-Care Reason For Visit: CP Discharge Diagnosis: Chest pain Hypertensive urgency Hyperlipidemia Prediabetes Activity: Per Instructions section Exercise/Sports: Gradually increase as tolerated Non-emergency contact: Primary Care Provider and Statistical Programmer Call non-emergency contact if: you have any medication questions, your symptoms worsen, your pain is concerning for you and you have a fever Follow-up/Referrals: Tino Edouard MD [Physician] - (The Cardiology office will contact you for a follow up appointment.) Sweta Tiwari MD [Primary Care Provider] - (Date & Time 06/26/2023 10:20 AM Provider Vibha Roque MD Department General Internal Medicine [place], [place] ) Diet: Heart Healthy [place] Attending Provider Instructions: Follow-up with your primary care physician Dr. Sweta Tiwari in 1 week Follow-up with your cardiology in 3-4 weeks Seek immediate medical attention if your symptoms reoccur or worsen Please take all medications as instructed on discharge list below. Please call if you have any questions or problems. You can reach a [facility] hospitalist on duty at [facility] 24 hours a day by calling [phone] Home Care: * Take your medications exactly as directed. Don't skip doses. * Remember that recovery after a heart attack takes time. Plan to rest for at lease 4-8 weeks while you recover. Then return to normal activity when your doctor says it's okay. * Ask your doctor about joining a heart rehabilitation program. * Tell your doctor if you are feeling depressed. Feelings of sadness are common after a heart attack, but it is important that you speak to someone if you are feeling overwhelmed by these feelings. * If you are having chest pain, call 911 for an ambulance. Do NOT drive yoursel f to the hospital. * Ask your family members to learn CPR. * Learn to take your own blood pressure and pulse. Keep a record of your results. Ask your doctor when you should seek emergency medical attention. He or she will tell you which blood pressure reading is dangerous. Lifestyle Changes: * Maintain a healthy weight. Get help to lose any extra pounds. * Cut back on salt. * Limit canned, dried, packaged, and fast foods. * Don't add salt to your food. * Season foods with herbs instead of salt when you cook. * Break the smoking habit. Enroll in a stop-smoking program to improve your chances of success. * Limit fatty foods. * Ask your doctor about having your lipid levels checked regularly. * Build up your activity according to your doctor's recommendation. * Ask your doctor when it's okay to resume sexual activity. * Tell your doctor about any erectile dysfunction (ED) medication you are taking. Some ED medications are not safe if you take certain heart medications. * Try to manage stress. Follow Up: It is important for you to keep your follow up appointments with your medical provider. [place] Mineralogy Teacher Provider Instructions: ACTIVITY RECOMMENDATIONS: Excess manipulation of the wrist should be avoided for the next 24-48 hours. * No lifting over 2 pounds (approximately a 1/2 gallon of milk) with the utilized arm for 24 hours. * No strenuous activity such as bowling or tennis for 3 days. * Keep the site of the procedure covered with a bandage for 24 hours. *You may shower the day after the procedure. Do not take a tub bath or submerge the puncture site in water for the next 3 days. *Do not operate any motorized equipment for 3 days. SPECIAL CARE INSTRUCTIONS: The site may be slightly bruised and sore following your procedure. Should any of the following occur, contact the Dr. who performed your procedure. 1. Redness/inflammation, swelling, chills, or fever, or colored drainage at procedure site within 3-7 days after your procedure. 2. Coldness, discoloration, ongoing numbness, severe pain, or swelling. Expect mild tingling of hand and tenderness at the puncture site for up to three days. If this persists beyond three days, or other symptoms develop, notify the Dr. who performed your procedure. BLEEDING: If the procedure site on your wrist begins to bleed, do not panic 1. Place 1 or 2 fingers firmly just slightly above the insertion site to stop the bleeding. You may be able to feel your pulse as you hold pressure. 2. Lift your finger after 5 minutes to see if the bleeding has stopped. 3. Once the bleeding has stopped, gently wipe the wrist area clean with a bandage. * If the bleeding from your wrist does not stop after 10 minutes, or if there is a large amount of bleeding or spurting, call 911 (do not drive yourself to the hospital). SKIN IRRITATION: * You may experience some redness and/or swelling in the area where radiation was administered. If any skin irritation occurs, please contact your family physician. FOLLOW UP VISIT: Keep any scheduled doctor appointments. Pending Studies at Discharge: No Stand-Alone Forms: My PrintToPeer, Smoking Cessation Medications and DC Order Prescriptions: New amlodipine [Norvasc] 5 mg Tablet 2.5 mg PO QPM Qty: 30 0RF aspirin 81 mg Tablet,Delayed Release (Dr/Ec) 81 mg PO DAILY Qty: 30 0RF metoprolol succinate 25 mg Tablet Extended Release 24 Hr 25 mg PO QAM Qty: 30 0RF rosuvastatin 40 mg tablet 40 mg PO DAILY Qty: 30 0RF Discontinued ibuprofen 200 mg Tablet 200 mg PO Q8H PRN (Reason: Fever Or Pain) Discharge Orders: Discharge Order (Routine); Ordered 06/20/23 Ordered By: John Reyes/Other Patient Handouts: Eating Heart-Healthy Foods Admission Data Admit Date/Time: 06/18/23 01:58 Attending Provider: John Carvalho Admit Provider: Art Alvarado Primary Care Provider: Sweta Tiwari Other Providers: Art Alvarado; Lisa Woo; Luis Rhodes; Tino Edouard; Josh Garcia; Brandon Sung; Jaquan Watkins; Marianna Shirley; Tatyana Leo; Arsenio Myrick Ashley M.; Arnol Reynoso; Joseph Bingham; Lydia Forbes; Amira Mcgregor; Joann Zamora George
--- NOTE | 2023-06-20 18:02 | Cardiology Progress Note ---
Date of Service June 20, 2023 Assessment & Plan (1) Elevated troponin: (2) Hypertensive urgency: (3) Paresthesia of left arm: (4) Chest pain: Plan Patient presented after developing chest pain radiating to left arm at rest. No recurrence of symptoms. EKGs with now ST evolution inferior leads question inflammation pericarditis versus myocardial injury Echocardiogram with preserved LV function Cardiac catheterization with minimal luminal irregularities small caliber vess els concerning for possible microvascular disease component with hypertensive blood pressure response Plan: Discussed in detail with patient will attempt to simplify medical regimen. Discharge on metoprolol succinate 25 mg p.o. daily, amlodipine 2.5 mg every afternoon Significant hyperlipidemia present with LDL 198 will treat with rosuvastatin 40 mg p.o. daily Continue aspirin Needs cardiology follow-up 3 to 4 weeks time Admission and Anticipated Discharge Date Admission Date: June 18, 2023 Subjective Patient patient seen and examined, chart reviewed No complaints overnight chest pain without recurrence. Blood pressure trending towards better control. No dizziness or lightheadedness. Notes component of chronic anxiety currently. No fevers or chills. Results & Data Vital Signs (Past 12 Hours) Vital Signs Temp Pulse Resp BP BP Pulse Ox O2 Del Method 06/20/23 13:40 36.6 C 77 18 122/73 110/68 96 06/20/23 11:20 36.6 C 77 18 122/73 96 Room Air 06/20/23 07:12 36.6 C 70 18 115/71 98 Room Air Laboratory Results Laboratory Results - last 24 hr 06/20/23 02:05 WBC 8.75 RBC 4.42 Hgb 13.3 Hct 39.8 MCV 90.0 MCH 30.1 MCHC 33.4 RDW Std Deviation 40.3 RDW Coeff of Aashish 12.1 Plt Count 286 MPV 10.1 Sodium 139 Potassium 4.0 Chloride 108 H Carbon Dioxide 25 Anion Gap 6 BUN 14 Creatinine 0.89 Est Cr Clr Drug Dosing 73.5 Est GFR ( Amer) 88.8 Est GFR (Non-Af Amer) 76.6 BUN/Creatinine Ratio 15.7 Glucose 97 Calcium 9.2 Magnesium 1.9 (4) Chest pain Chest pain type: unspecified Qualified Code(s): R07.9 - Chest pain, unspecified
[2023-06-21] MEDS ORDERED: METOPROLOL SUCC 25MG EXT REL TAB PO SCH (09:00)
[2023-06-21] MEDS ORDERED: ROSUVASTATIN CALCIUM 20 MG TAB PO SCH (09:00)
== END 2023-06-20 14:00 | disposition home or self-care (01) ==
LOC: ED 19:29 → EDINP 19:29 → 4W 06-18 04:56